=== PATIENT | male | born 1960 | race Caucasian/White ===

== ENCOUNTER 2019-01-16 12:50 | Emergency (ER) | payer OTHER ==
[~2019-01-16] VITALS: Ht 190.5 cm; Wt 86.2 kg
--- NOTE | 2019-01-16 13:00 | NUR ---
patient presented to the ER sent by [facility] for medical clearance. On room air, breathing evenly and unlabored. connected to the monitor and pulse ox. kept comfortable, will continue to monitor accordingly.
--- NOTE | 2019-01-16 13:04 | NUR ---
DR. REGAN CALLED REGARDING PT, WANTS TO SPEAK WITH ER .
--- NOTE | 2019-01-16 13:15 | NUR ---
patient taking a shower, pclothes provided.
[2019-01-16 14:04] LABS: BASOPHILS # (AUTO) 0.1 /CMM (0.0-0.2); BASOPHILS % (AUTO) 0.7 % (0.0-2.0); EOSINOPHILS % (AUTO) 1.8 % (0.0-6.0); HEMATOCRIT 46 % (39-51); HEMOGLOBIN 16.6 g/dL (13.5-17.5); LYMPHOCYTES # (AUTO) 2.3 /CMM (0.8-4.8); LYMPHOCYTES % (AUTO) 25.2 % (20.0-44.0); MEAN CORPUSCULAR HGB CONC 36 g/dl (31.0-36.0); MEAN CORPUSCULAR VOLUME 93 fL (80-96); MONOCYTES # (AUTO) 0.9 /CMM (0.1-1.30); NEUTROPHILS # (AUTO) 5.6 /CMM (1.8-8.9); NEUTROPHILS % (AUTO) 62.3 % (43.0-81.0); PLATELET COUNT (AUTO) 232 /CMM (150-450); RED BLOOD CELL COUNT(AUTO) 4.95 MIL/uL (4.5-6.0)
[2019-01-16] MEDS ORDERED: CLONIDINE HCL 0.1 MG TABLET ONE (14:12)
[2019-01-16 14:15] LABS: ALANINE AMINOTRANSFERASE 20 U/L (12-78); ALBUMIN 3.6 g/dL (3.4-5.0); ALCOHOL, BLOOD < 3 mg/dL (0-0); ALKALINE PHOSPHATASE 133 U/L (46-116); ASPARTATE AMINOTRANSFERASE 18 U/L (15-37); BILIRUBIN,DIRECT 0.2 mg/dL (0.0-0.2); BILIRUBIN,TOTAL 0.7 mg/dL (0.2-1.0); CALCIUM, SERUM 10.1 mg/dL (8.5-10.1); CARBON DIOXIDE 34 mmol/L (21-32); CHLORIDE 102 mmol/L (98-107); CREATININE 1.1 mg/dL (0.6-1.3); GLUCOSE 75 mg/dL (74-106); SALICYLATE 4.5 mg/dL (2.8-20.0); SODIUM SERUM 141 mmol/L (136-145); TOTAL PROTEIN, SERUM 6.9 g/dL (6.4-8.2); UREA NITROGEN, BLOOD 19 mg/dL (7-18)
[2019-01-16 14:16] LABS: ACETAMINOPHEN 0 ug/ml (10-30)
[2019-01-16 14:17] LABS: POTASSIUM 2.6 mmol/L (3.5-5.1)
[2019-01-16] MEDS ORDERED: POTASSIUM CHLORIDE 20 MEQ TAB.PRT.SR PO ONE ×2 (14:17→14:30)
[2019-01-16] MEDS ORDERED: CLONIDINE HCL 0.1 MG TABLET PO ONE (14:30)
[2019-01-16 15:43] VITALS: BP 155/88
--- NOTE | 2019-01-16 15:53 | NUR ---
urine collected and sent to lab
[2019-01-16 15:57] LABS: APPEARANCE,URINE Slightly Cloudy (CLEAR); BILIRUBIN,URINE SMALL (NEGATIVE); BLOOD, URINE Negative Ery/uL (NEGATIVE); COLOR,URINE Yellow (YELLOW); KETONES,URINE Trace (NEGATIVE); LEUKOCYTE ESTERASE ,URINE Negative (NEGATIVE); NITRITE, URINE Negative (NEGATIVE); PROTEIN,URINE Trace mg/dl (NEGATIVE); UGLUCOSE Negative (NEGATIVE)
[2019-01-16 16:05] LABS: BACTERIA,URINE Rare /HPF (None Seen); MUCUS,URINE Few /LPF (None Seen); RBC,URINE 0-2 /HPF (0-2); SQUAMOUS EPITHELIAL CELL,UR Rare /HPF (None Seen); WBC,URINE 0-2 /HPF (0-3)
--- NOTE | 2019-01-16 16:34 | NUR ---
CALLED ILANA CHAPA TO SEND FAX FOR PATIENT.
--- NOTE | 2019-01-16 16:38 | NUR ---
CALL FROM GLORIA AT [facility], REPORT TO [phone] X [phone]
--- NOTE | 2019-01-16 16:46 | NUR ---
CALLED [facility]. [facility] 1HR TRIP NUMBER [id number].
--- NOTE | 2019-01-16 16:57 | NUR ---
CALL FOR REPORT. EXT. [id number].
--- NOTE | 2019-01-16 17:39 | NUR ---
report given to Digna [facility] for silvia.
--- NOTE | 2019-01-16 19:02 | NUR ---
patient picked up by ambulance going to [facility] in no apparent distress noted.
== END 2019-01-16 19:01 ==
LOC: ER 12:50
DX: F22 Delusional disorders (principal); E87.6 Hypokalemia; R45.851 Suicidal ideations; I10 Essential (primary) hypertension; F41.9 Anxiety disorder, unspecified; Z59.0 Homelessness
CPT/HCPCS: 36415; 80048; 80076; 80305; 80307; 80329; 81001; 85025; 99285; G0480; 81000-TC